=== PATIENT | male | born 1965 | race Caucasian/White ===

== ENCOUNTER 2016-03-09 10:51 | Outpatient (RCR) | payer BC ==
[2016-01-21 10:23] VITALS: BP 147/88
[~2016-03-09 10:51] MED LIST: CEPHALEXIN500 M1 PO; PERCOCET 325 MG1 TA2 PO
== END 2016-06-07 | disposition home or self-care (01) ==
LOC: PT
DX: Z47.1 Aftercare following joint replacement surgery (principal); Z96.641 Presence of right artificial hip joint